=== PATIENT | female | born 1995 | race African-American/Black ===

== ENCOUNTER 2023-03-03 19:14 | Emergency (ER) | payer MEDICAID, SELFPAY ==
--- NOTE | ~2023-03-03 | XR_ITS ---
EXAMINATION: XR chest 2V DATE: 03/03/2023 22:31 INDICATION: Cough and shortness of breath TECHNIQUE: PA and lateral views of the chest are obtained. COMPARISON: None available FINDINGS: The lungs are free of acute opacities. No pleural effusion or pneumothorax. The cardiomedia stinal silhouette is normal. The visualized bones and soft tissues are unremarkable. IMPRESSION: 1. No acute cardiopulmonary abnormality. Reviewed, dictated and finalized at location F.
[2023-03-03 19:22] VITALS: BP 124/69; PULSE 80; RESP 16; TEMP 36.6; O2SAT 98
[2023-03-03 22:00] VITALS: BP 123/87; PULSE 84; RESP 14; O2SAT 99
[2023-03-03 23:09] LABS: Influenza A QL RT-PCR Negative (Negative); Influenza B QL RT-PCR Negative (Negative); RSV RNA, RT-PCR Negative (Negative); SARS-CoV-2 RNA PCR Negative (Negative)
[2023-03-03 23:24] VITALS: BP 130/87; PULSE 83; RESP 14; O2SAT 99
--- NOTE | 2023-03-03 23:31 | ED_ITS ---
HPI - Asthma General Chief Complaint: Asthma Stated Complaint: asthma- cough Time Seen by Provider: 03/03/23 22:14 History of Present Illness HPI Narrative: Patient presents the emergency department with concern for asthma exacerbation. She moved to the area and is out of all of her medications currently. She has been using them regularly over the past 3 weeks. She has had a persistent cough but denies fevers. Denies sick contacts. Related Data Allergies Allergy/AdvReac Type Severity Reaction Status Date / Time No Known Allergies Allergy Verified 03/03/23 22:45 Review of Systems Review of Systems: Review of systems negative except what is documented in the HPI Exam 2 Narrative: GENERAL: Well-appearing, well-nourished, and in no acute distress. HEAD: Normocephalic, atraumatic. EYES: PERRLA and EOMI. ENT: Nares clear, no rhinorrhea or epistaxis. Mucous membranes moist. NECK: Supple. CHEST: Clear to auscultation. No respiratory distress. HEART: Regular rate and rhythm. ABDOMEN: Soft, nontender, nondistended. EXTREMITIES: Normal range of motion. No edema. SKIN: Warm, dry, no rash. NEURO: No focal deficits. Alert and oriented x3. PSYCH: Normal mood and affect. Course Vital Signs Vital signs: Vital Signs Temperature 36.6 C 03/03/23 19:22 Pulse Rate 80 03/03/23 19:22 Respiratory Rate 16 03/03/23 19:22 Blood Pressure 124/69 03/03/23 19:22 Pulse Oximetry 98 03/03/23 19:22 Oxygen Delivery Room Air 03/03/23 19:22 Temperature 36.6 C 03/03/23 19:22 Pulse Rate 83 03/03/23 23:24 Respiratory Rate 14 03/03/23 23:24 Blood Pressure 130/87 03/03/23 23:24 Pulse Oximetry 99 03/03/23 23:24 Oxygen Delivery Room Air 03/03/23 22:00 MDM - Asthma MDM Narrative Medical decision making narrative: Patient's lungs are clear to auscultation. Exam grossly benign. Vital signs stable without hypoxemia. COVID and influenza negative. Lab Data Labs: Lab Results 03/03/23 Range/Units 22:27 Influenza A (RT-PCR) Negative (Negative) Influenza B (RT-PCR) Negative (Negative) RSV (RT-PCR) Negative (Negative) SARS-CoV-2 RNA (RT-PCR) Negative (Negative) Discharge Plan Discharge Clinical Impression: Asthma with acute exacerbation Patient Disposition: Home, Self-Care Condition: Stable Instructions: Asthma (ED) Prescriptions: New benzonatate 100 mg capsule 100 mg PO TID PRN (Reason: cough) Qty: 20 0RF prednisone 50 mg tablet 50 mg PO DAILY Qty: 4 0RF albuterol sulfate 90 mcg/actuation HFA aerosol inhaler 1 inh inhalation QID PRN (Reason: shortness of breath or wheezing) Qty: 6.7 0RF Follow-up/Referrals: Tomy Valle MD [Physician] - UNKNOWN,DOCTOR [Primary Care Provider] - Time of Disposition: 23:52
[2023-03-04] VITALS: BP 130/74; PULSE 90; RESP 19; O2SAT 99
[2023-03-04] MEDS: BENZONATATE 100 MG CAPSULE PO (00:02)
[2023-03-04] MEDS: predniSONE 20 MG TABLET 60 MG PO (00:02)
== END 2023-03-04 | disposition home or self-care (01) ==
PROVIDERS: Emergency Provider Emergency Medicine
DX: J45.901 Unspecified asthma with (acute) exacerbation (principal)
CPT/HCPCS: 71046; 87637; 99283; A9270; J7512

== ENCOUNTER 2023-03-05 17:22 | Emergency (ER) | payer MEDICAID, SELFPAY ==
[2023-03-05] VITALS (10 sets, daily range): BP systolic 114–150; BP diastolic 75–86; PULSE 80–122; RESP 12–28; TEMP 36.9; O2SAT 97–100
--- NOTE | 2023-03-05 19:25 | PC.NURSE ---
Notified by scale technician that patient walked out of the exam room and stated I haven't been seen by a doctor. I'm not waiting any more . therapeutic program worker notified.
== END 2023-03-05 21:11 | disposition left against medical advice (07) ==
LOC: ANHED 19:31
DX: R06.02 Shortness of breath (principal)
CPT/HCPCS: 99199

== ENCOUNTER 2023-07-03 08:24 | Emergency (ER) | payer OTHER, SELFPAY ==
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
[2023-07-03 08:50] VITALS: BP 113/66; PULSE 98; RESP 16; TEMP 37.1; O2SAT 99
== END 2023-07-03 09:05 | disposition home or self-care (01) ==
PROVIDERS: Emergency Provider Registered Nurse
DX: B37.0 Candidal stomatitis (principal); N76.0 Acute vaginitis
CPT/HCPCS: 99213; G0463

== ENCOUNTER 2023-08-25 17:09 | Emergency (ER) | payer BC, OTHER, SELFPAY ==
--- NOTE | 2023-08-25 17:15 | ED.GENADULT ---
HPI - General Adult General Chief complaint: Asthma Stated complaint: asthma issue Time Seen by Provider: 08/25/23 17:15 Source: patient, RN notes reviewed and old records reviewed Mode of arrival: ambulatory Limitations: no limitations History of Present Illness HPI narrative: 28-year-old female presents to the [facility] with an asthma issue. Has a history of asthma. Patient reports for the last 2-3 days has had increased shortness of breath, wheezing. Onset (ago): day(s) (2-3) Related Data Home Medications Medication Instructions Recorded Confirmed albuterol sulfate 2.5 mg/3 mL 2.5 mg inhalation Q4H PRN sob 08/25/23 08/25/23 (0.083 %) solution for nebulization albuterol sulfate 90 mcg/actuation 2 puff inhalation Q4-6H PRN sob 08/25/23 08/25/23 aerosol inhaler Allergies Allergy/AdvReac Type Severity Reaction Status Date / Time No Known Allergies Allergy Verified 08/25/23 17:15 Review of Systems Review of Systems: All systems reviewed & are unremarkable except as noted in HPI and below Constitutional: Constitutional: Reports no additional constitutional complaints Eyes: Eyes: Reports no additional eye complaints ENT: Reports system reviewed and no additional complaints, except as documented Cardiovascular: Cardiovascular: Reports no additional cardiovascular complaints, Denies chest pain and Denies dyspnea Respiratory: Respiratory: Reports as per HPI, Denies chest congestion, Denies cough and Reports dyspnea Gastrointestinal: Gastrointestinal: Reports no additional gastrointestinal complaints, Denies abdominal pain, Denies nausea and Denies vomiting Musculoskeletal: Musculoskeletal: Reports no additional musculoskeletal complaints Integumentary/Breasts: Skin/Breast: Reports system reviewed and no additional complaints, except as docu Neurologic: Reports system reviewed and no additional complaints, except as documented Psychiatric: Psychiatric: Reports no additional psychiatric complaints Allergic/Immunologic: Allergic/Immunologic: Reports no additional allergic/immunologic complaints PMFSH Comments At the time of my signature, I reviewed and agree with the nursing past medical, surgical, social, and family history. There is no relevant family history pertinent to the patient complaint. Exam Const: General: cooperative, healthy appearing, comfortable, no acute distress, well developed, alert and well nourished Nutritional Appearance: well nourished Orientation/consciousness: patient oriented x3 Limitations: no limitations HENMT: Head: normal to inspection Ears: hearing grossly normal bilaterally and external ears normal Face/Nose/Sinus: Normal external nose present, Normal nares present, Normal nasal mucous membranes and turbinates present, normal facial exam and face symmetric Face and sinus: normal facial exam and face symmetric Mouth: Yes Normal oral and palatal mucosa present, Yes lip normal and Yes moist mucous membranes Throat: posterior oropharynx normal, uvula midline and no uvular edema Eyes: General: appearance normal, both eyes and all related structures Alignment and Position: alignment normal Periorbital: periorbital findings normal Pupils: Equal, round and reactive pupils present EOM: EOMs intact bilaterally Neck: Neck: normal visual inspection, full ROM, no lymphadenopathy and no meningeal signs Chest: Chest palpation & inspection: normal inspection of the chest Resp: Effort & Inspection: normal respiratory effort and able to speak in complete sentences Auscultation: no crackles, no rales, no rhonchi, wheezes expiratory wheezes, left lower and right lower and diminished lung sounds bilateral throughout Cardio: Rate: regular rate Rhythm: regular rhythm Back/Spine/Pelvis: Cervical Spine: cervical ROM normal Skin: General skin exam: normal color and no rashes or lesions noted Lesions: no lesions Rashes: no rashes Wounds: no wounds Neuro: General: patient oriented x3, ga
[2023-08-25 17:20] VITALS: BP 113/65; PULSE 86; RESP 18; TEMP 37.3; O2SAT 99
[2023-08-25] MEDS: ALBUTEROL SULFATE NEB 2.5 MG/3 ML INH INHALATION (17:36)
[2023-08-25] MEDS: IPRATROPIUM BR 0.02% INH SOLN 0.5 MG/2.5 ML VIAL INHALATION (17:36)
== END 2023-08-25 18:23 | disposition home or self-care (01) ==
PROVIDERS: Emergency Provider Nurse Practitioner
DX: J45.901 Unspecified asthma with (acute) exacerbation (principal)
CPT/HCPCS: 94640; 99213; G0463

== ENCOUNTER 2024-01-27 13:48 | Emergency (ER) | payer OTHER, MEDICAID, SELFPAY ==
[2024-01-27 13:54] VITALS: BP 122/71; PULSE 104; RESP 20; TEMP 36.8; O2SAT 99
--- NOTE | 2024-01-27 14:06 | ED.URI ---
HPI - URI/Sore Throat General Chief Complaint: Unspecified Stated Complaint: Vaginal/Asthma/Left Hand Finger Pain Time Seen by Provider: 01/27/24 14:07 Source: patient, RN notes reviewed and old records reviewed Mode of arrival: ambulatory Limitations: no limitations History of Present Illness HPI Narrative: Patient presents with complaints of pain and swelling around the nail bed of the left thumb, this has been present for about a week. She noted this after pulling out a hangnail. She also complains of swelling to the right labia majora. this has been present for a couple of days Further complains of increase in asthma symptoms for the past couple of months. Reports that she recently moved back to the area, asthma symptoms have been present since, she is not in any distress today. She reports that she no longer has a PCP, a list of primary is will be provided to her at discharge Related Data Home Medications Medication Instructions Recorded Confirmed albuterol sulfate 2.5 mg/3 mL 2.5 mg inhalation Q4H PRN sob 08/25/23 01/27/24 (0.083 %) solution for nebulization albuterol sulfate 90 mcg/actuation 2 puff inhalation Q4-6H PRN sob 08/25/23 01/27/24 aerosol inhaler butalbital 50 mg-acetaminophen 325 tablet 01/27/24 mg tablet Allergies Allergy/AdvReac Type Severity Reaction Status Date / Time No Known Allergies Allergy Verified 01/27/24 14:05 Review of Systems Review of Systems: All systems reviewed & are unremarkable except as noted in HPI and below Constitutional: Constitutional: Reports as per HPI and Reports no additional constitutional complaints ENT: Reports system reviewed and no additional complaints, except as documented Cardiovascular: Cardiovascular: Reports no additional cardiovascular complaints Respiratory: Respiratory: Reports as per HPI, Reports no additional respiratory complaints, Reports cough and Reports wheezing Gastrointestinal: Gastrointestinal: Reports no additional gastrointestinal complaints Genitourinary: Genitourinary: Reports no additional female genitourinary complaints and Reports as per HPI Integumentary/Breasts: Skin/Breast: Reports system reviewed and no additional complaints, except as docu and Reports as per HPI PMFSH Comments At the time of my signature, I reviewed and agree with the nursing past medical, surgical, social, and family history. There is no relevant family history pertinent to the patient complaint. Exam Const: General: cooperative, no acute distress, alert and awake Orientation/consciousness: oriented to person, oriented to place and oriented to time HENMT: Head: normal to inspection Mouth: Yes moist mucous membranes Resp: Effort & Inspection: normal respiratory effort and able to speak in complete sentences Auscultation: clear to auscultation bilaterally, no crackles, no rales, no rhonchi and no wheezes Cardio: Palpation: normal PMI Rate: regular rate Rhythm: regular rhythm Heart sounds: S1 normal heart sound present and S2 normal heart sound present : External Female Exam: external swelling ( mild swelling, right labia majora) and lesion ( excoriation noted right side of labia near vaginal opening) Neuro: General: oriented to person, oriented to place and oriented to time Cranial nerves: Yes CN's II-XII intact bilaterally Extrem: Left upper extremity: full ROM, normal capillary refill and hand normal capillary refill, neuromotor exam normal, tenderness of the thumb at the nailbed, normal ROM of fingers and swelling of the thumb at the nailbed Psych: Appearance: grossly normal Thought process: Normal thought process present Insight: Good insight present (Psych) Judgement: Good judgement present (Psych) Course Course Emergency Course: no asthma symptoms on arrival, but will refill albuterol inhaler so that she has this for emergency use. Left thumb with paronychia, this was easily drained with needle. Will start antibiotic therapy for
[2024-02-04 02:58] LABS: Source LABIA MAJORA
== END 2024-01-27 14:55 | disposition home or self-care (01) ==
PROVIDERS: Emergency Provider Nurse Practitioner Family
DX: L03.012 Cellulitis of left finger (principal); N89.9 Noninflammatory disorder of vagina, unspecified; J45.909 Unspecified asthma, uncomplicated
CPT/HCPCS: 10160; 87255; 99213; G0463

== ENCOUNTER 2024-03-21 12:11 | Emergency (ER) | payer OTHER, MEDICAID, SELFPAY ==
[2024-03-21 12:17] VITALS: BP 115/68; PULSE 84; RESP 18; TEMP 36.6; O2SAT 99
--- NOTE | 2024-03-21 12:37 | ED.ASTHMA ---
HPI - Asthma General Chief Complaint: Asthma Stated Complaint: asthma flare up Time Seen by Provider: 03/21/24 12:14 Source: patient Mode of arrival: ambulatory Limitations: no limitations History of Present Illness HPI Narrative: Patient is a 20-year-old female who presents with 1 week of increased shortness of breath and wheezing. Patient has asthma and has been out of all of her inhalers and nebulizer drops. Patient still has an active smoker. Denies any fever, chills, nausea, vomiting, diarrhea. Does report cough. Related Data Home Medications Medication Instructions Recorded Confirmed albuterol sulfate 2.5 mg/3 mL 2.5 mg inhalation Q4H PRN sob 08/25/23 01/27/24 (0.083 %) solution for nebulization albuterol sulfate 90 mcg/actuation 2 puff inhalation Q4-6H PRN sob 08/25/23 01/27/24 aerosol inhaler Allergies Allergy/AdvReac Type Severity Reaction Status Date / Time No Known Allergies Allergy Verified 01/27/24 14:05 Review of Systems Review of Systems: All systems reviewed & are unremarkable except as noted in HPI and below Constitutional: Constitutional: Denies body ache(s), Denies chills, Denies fatigue, Denies fever(s), Denies headache(s), Denies malaise and Denies weakness Eyes: Eyes: Denies blurry vision, Denies itchy eyes and Denies loss of vision ENT: Denies otalgia, Denies headache(s), Denies nasal congestion, Denies sinus pain and Denies sore throat Cardiovascular: Cardiovascular: Denies chest pain, Denies irregular heart rhythm and Denies dyspnea Respiratory: Respiratory: Reports cough, Denies dyspnea and Reports wheezing Gastrointestinal: Gastrointestinal: Denies abdominal pain, Denies diarrhea, Denies nausea and Denies vomiting Musculoskeletal: Musculoskeletal: Denies back pain, Denies myalgias and Denies arthralgias Integumentary/Breasts: Skin/Breast: Denies pruritus and Denies rash Neurologic: Denies headache(s), Denies loss of vision and Denies weakness Psychiatric: Psychiatric: Reports no additional psychiatric complaints Endocrine: Endocrine: Denies fatigue Allergic/Immunologic: Allergic/Immunologic: Denies itchy eyes PMFSH Comments At time of signature, agree with nursing past medical, surgical, social and family history. There is no relevant family history pertinent to the presenting complaint. Exam Const: General: cooperative, healthy appearing, comfortable, no acute distress and well nourished Nutritional Appearance: well nourished Orientation/consciousness: patient oriented x3 Limitations: no limitations HENMT: Head: normal to inspection, normocephalic and atraumatic Ears: hearing grossly normal bilaterally, external ears normal, TM's normal bilaterally, EAC's normal and no periauricular adenopathy Face/Nose/Sinus: Normal external nose present, Normal nasal mucous membranes and turbinates present, normal facial exam, sinuses nontender and face symmetric Face and sinus: normal facial exam, sinuses nontender and face symmetric Mouth: Yes Normal oral and palatal mucosa present, Yes lip normal, Yes tongue normal, Yes Normal salivary glands and ducts present, Yes oropharynx normal and Yes moist mucous membranes Teeth and gingiva: dentition normal Throat: posterior oropharynx normal, tonsils normal and uvula midline Eyes: General: appearance normal, both eyes and all related structures Alignment and Position: alignment normal and position normal Periorbital: periorbital findings normal Eyelids: eyelids normal Pupils: Equal, round and reactive pupils present Neck: Neck: normal visual inspection, full ROM, no lymphadenopathy and supple Chest: Chest palpation & inspection: normal inspection of the chest and normal palpation of entire chest wall Resp: Effort & Inspection: normal respiratory effort and able to speak in complete sentences Auscultation: no crackles, no rales, no rhonchi and wheezes inspiratory wheezes and throughout Cardio: Rate: regular rate Rhythm: regular rhythm Heart sounds: S1 normal heart sound present and S2 normal heart sound present GI: Inspection: normal to inspection Skin: General skin exam: normal color and no rashes or lesions noted Neuro: General: patient oriented x3 and moves all extremities Cranial nerves: Yes Equal, round and reactive pupils present Speech: normal speech Gait exam (Neuro): Normal gait present Extrem: General: normal to inspection, full ROM and no edema Psych: Appearance: grossly normal and well kempt Mental Status: mental status grossly normal Speech and movement: Normal speech and movement present Affect: normal affect Attitude: cooperative Thought process: Normal thought process present Course Course Emergency Course: Patient is aware of diagnosis, understands and agrees to treatment plan. Anticipatory guidance given. Patient agrees to follow-up as directed and is aware of reasons to seek care at the emergency department. Portions of this record may have been created with voice recognition software Level of Care: Express Care Visit Vital Signs Vital signs: Vital Signs Temperature 36.6 C 03/21/24 12:17 Pulse Rate 84 03/21/24 12:17 Respiratory Rate 18 03/21/24 12:17 Blood Pressure 115/68 03/21/24 12:17 Pulse Oximetry 99 03/21/24 12:17 Oxygen Delivery Room Air 03/21/24 12:17 Temperature 36.6 C 03/21/24 12:17 Pulse Rate 84 03/21/24 12:17 Respiratory Rate 18 03/21/24 12:17 Blood Pressure 115/68 03/21/24 12:17 Pulse Oximetry 99 03/21/24 12:17 Oxygen Delivery Room Air 03/21/24 12:17 Reviewed MDM - Asthma MDM Narrative Medical decision making narrative: Exam findings show no acute concerns or changes; patient is non-toxic appearing and is in no distress.? Patient is appropriate for outpatient treatment and follow-up. Discharge instructions reviewed with patient, as well as provided in writing per nursing staff. The instructions also include specific and strict return/GO TO THE ER as well as f/u information. All questions have been answered, and the patient deny any further questions with discharge and discharge plan. Differential Diagnosis Differential diagnosis: Likely Acute exacerbation, Status asthmaticus, Acute asthmatic bronchitis, Pneumonia, COPD exacerbation and ARDS Medical Records Attestation: I reviewed the patient's medical records. Discharge Plan Discharge Clinical Impression: Asthma with acute exacerbation Qualifiers: Asthma severity: unspecified severity Asthma persistence: unspecified Qualified Code(s): J45.901 - Unspecified asthma with (acute) exacerbation Patient Disposition: Home, Self-Care Condition: Stable Instructions: Asthma (ED) Additional Instructions: Take antibiotic as prescribed. Take steroids in the morning with food. Use Tessalon Perles as needed for cough. Use inhaler with spacer or the nebulizer as needed. Other symptomatic treatments include: -Alternate Tylenol and Motrin per package directions for fever or pain. -Antihistamine medication such as Benadryl at night and Zyrtec/Claritin/Shannan during the day can help improve symptoms. -Use Flonase twice a day for 5 days then daily to help reduce the inflammation and dry up your sinuses. -You can also use Sudafed or Mucinex. Be sure to drink plenty of water with these medications at least 8 ounces with every dose and it is important to drink 8 to 10 glasses of water per day. Water is a natural decongestant -Eat and drink things that are easy to swallow, like tea or soup, or popsicles. -Oral rinses such as: Salt water gargles and/or may use topical anesthetic (eg. Chloraseptic spray) or lozenges to relieve dryness or throat pain). -Frequent hand washing or hand movie shot camera operator is one of the best ways to prevent spread of infection. -Using a vaporizer or humidifier at night will also help thin secretions and help with coughing up phlegm. -Follow up with primary care provider in 3-5 days if condition is not improving - For new or worsening symptoms go directly to the nearest ER Prescriptions: New albuterol sulfate 2.5 mg /3 mL (0.083 %) solution for nebulization 2.5 mg inhalation Q6H Qty: 90 0RF (DME) Aerochamber MV Spacer See Rx Instructions .Route Qty: 1 0RF Rx Instructions: As directed albuterol sulfate 90 mcg/actuation HFA aerosol inhaler 2 puff inhalation QID PRN (Reason: shortness of breath or wheezing) Qty: 6.7 0RF azithromycin 250 mg tablet See Rx Instructions .ROUTE .COMPLEX Qty: 6 0RF Rx Instructions: For 250 mg dose pack: take 500 mg today (day 1), then 250 mg for 4 days (days 2-5) prednisone 20 mg tablet 40 mg PO DAILY 5 Days Qty: 10 0RF triamcinolone acetonide 0.1 % cream 1 applic topical TID 5 Days Qty: 80 0RF benzonatate 100 mg capsule 100 mg PO BID PRN (Reason: cough) Qty: 14 0RF fluticasone propion-salmeterol [Wixela Inhub] 250-50 mcg/dose blister with device 1 inh inhalation Q12H Qty: 60 0RF No Action albuterol sulfate [Proventil HFA] 90 mcg/actuation HFA aerosol inhaler 2 puff inhalation QID PRN (Reason: shortness of breath or wheezing) Qty: 8.5 0RF albuterol sulfate 2.5 mg /3 mL (0.083 %) Solution For Nebulization 2.5 mg INHALATION Q4H PRN (Reason: sob) albuterol sulfate 90 mcg/actuation HFA aerosol inhaler 2 puff INHALATION Q4-6H PRN (Reason: sob) Follow-up/Referrals: Juan Novoa MD [Physician] - 3 Days (Establish care) PHYSICIAN,ROTARY DRILLER [Primary Care Provider] - Stand Alone Forms: Work/School Release IP Time of Disposition: 12:54
== END 2024-03-21 12:59 | disposition home or self-care (01) ==
PROVIDERS: Emergency Provider Nurse Practitioner Family
DX: J45.901 Unspecified asthma with (acute) exacerbation (principal); F17.200 Nicotine dependence, unspecified, uncomplicated
CPT/HCPCS: 99213; G0463

== ENCOUNTER 2025-01-25 13:57 | Emergency (ER) | payer BC, MEDICAID, SELFPAY ==
[2025-01-25 14:05] VITALS: BP 111/71; PULSE 91; RESP 18; TEMP 36.3; O2SAT 98
--- NOTE | 2025-01-25 14:53 | ED_ITS ---
HPI - General Adult General Chief complaint: Asthma Stated complaint: Asthma / Abdominal Pain Time Seen by Provider: 01/25/25 14:56 Source: patient, RN notes reviewed and old records reviewed Mode of arrival: ambulatory Limitations: no limitations History of Present Illness HPI narrative: 29 year old female who presents to [facility] care with complaints of increased asthma symptoms for the past 2.5 weeks has had to use her rescue inhaler more frequently lately and feels some dyspnea with exertion and has been noting some wheezing. Patient reports no upper respiratory symptoms, denies sinus congestion and drainage,reports no fevers. Patient reports that she was diagnosed in 2021 with ovarian cysts and has not had any pain for over a year till she had her menses in December and has been experiencing pain over ovaries in lower abdomen since. Patient reports that she started her menses on the 24 of January and pain has increased since she started her menses. Patient reports that she has no diarrhea, no nausea or any episodes of vomiting, no pain with urination. Patient reports that she was diagnosed with ovarian cysts when lived in [place], does not have PCP in this area but has [facility] with upcoming appointment this month MD complaint: asthma symptoms, pain in ovaries Onset (ago): month(s) (2.5 weeks increased asthma symptoms, 1 month ovary pain) Location: abdomen (lower abdomen over ovaries) Severity scale (1-10): 6 Quality: aching Treatments prior to arrival: other (Albuterol) Related Data Home Medications ?Medication ?Instructions ?Recorded ?Confirmed ?Last Taken ?Type albuterol sulfate 90 mcg/actuation 2 puff inhalation Q 4-6H PRN sob 08/25/23 01/27/24 Unknown History aerosol inhaler Allergies Allergy/AdvReac Type Severity Reaction Status Date / Time No Known Allergies Allergy Verified 01/25/25 14:42 Review of Systems Review of Systems: CONSTITUTIONAL: Denies fever, chills, or sweats. EYES: Denies visual changes, redness, or discharge. ENT: Denies rhinorrhea, congestion, sore throat, or otalgia. CARDIOVASCULAR: Denies chest pain, palpitations, or edema. RESPIRATORY: Reports cough and dyspnea with wheezing GASTROINTESTINAL: reports lower abdominal pain over ovary areas, no nausea, vomiting, or diarrhea. GENITOURINARY: Denies dysuria or hematuria. SKIN: Denies rash or itching. MUSCULOSKELETAL: Denies back pain, joint pain, or myalgia. NEUROLOGIC: Denies headache, numbness, or weakness. PSYCHIATRIC: Denies anxiety or depression. All systems reviewed & are unremarkable except as noted in HPI and below PMFSH Past Medical History Medical History (Updated 01/26/25 @ 15:29 by Sheri Hannon NP) Asthma Surgical History Surgical History (Updated 01/26/25 @ 15:16 by Sheri Hannon NP) H/O section x2 Social History Social History (Updated 01/26/25 @ 15:16 by Sheri Hannon NP) Smoking status: Never smoker Alcohol intake: current Alcohol use details: social Substance use type: does not use Living arrangements: with family Gender identity (if verbalized by the patient): Female Comments At time of signature, agree with nursing past medical, surgical, social and family history. There is no relevant family history pertinent to the presenting complaint Exam Narrative: GENERAL: Well-appearing, well-nourished, and in no acute distress. HEAD: Normocephalic, atraumatic. EYES: PERRLA and EOMI. ENT: Nares clear, no rhinorrhea or epistaxis. Mucous membranes moist.TM's normal throat pink with no drainage or exudate NECK: Supple. no lymphadenopathy CHEST: Scattered wheezing on auscultation. No acute respiratory distress no retractions noted, no acute cough.SAO2 98% on room air, able to speak in full sentences HEART: Regular rate and rhythm. No murmur heard. Normal peripheral pulses. ABDOMEN: Soft, tender over ovary areas no McBurney point tenderness, no groin pain or any pain over lower left quadrant on palpation,, nondistended, normal active bowel sounds, reports no fevers, no nausea, no vomiting, denies any UTI symptoms or constipation or diarrhea.. EXTREMITIES: Normal range of motion. No edema. SKIN: Warm, dry, no rash. NEURO: No focal deficits. Alert and oriented x3. Course Course Emergency Course: Patient is aware of diagnosis, understands and agrees to treatment plan.? Anticipatory guidance given.? Patient agrees to follow-up as directed and is aware of reasons to seek care at the emergency department. Portions of this record may have been created with voice recognition software Level of Care: Express Care Visit Vital Signs Vital signs: Vital Signs Temperature 36.3 C L 01/25/25 14:05 Pulse Rate 91 01/25/25 14:05 Respiratory Rate 18 01/25/25 14:05 Blood Pressure 111/71 01/25/25 14:05 Pulse Oximetry 98 01/25/25 14:05 Oxygen Delivery Room Air 01/25/25 14:05 Temperature 36.3 C L 01/25/25 14:05 Pulse Rate 91 01/25/25 14:05 Respiratory Rate 18 01/25/25 14:05 Blood Pressure 111/71 01/25/25 14:05 Pulse Oximetry 98 01/25/25 14:05 Oxygen Delivery Room Air 01/25/25 14:05 Reviewed Medical Decision Making MDM Narrative Medical decision making narrative: Exam findings and imaging show no acute concerns or changes; patient is non- toxic appearing and is in no distress.? Patient is appropriate for outpatient treatment and follow-up Differential Diagnosis Differential Diagnosis: lower abdominal pain over ovaries, asthma exacerbation, wheezing with dyspnea with exertion, on menses Medical Records Medical records reviewed: Yes I reviewed the external patient's medical records. Vital Signs Vital Signs: Vital Signs Temperature 36.3 C L 01/25/25 14:05 Pulse Rate 91 01/25/25 14:05 Respiratory Rate 18 01/25/25 14:05 Blood Pressure 111/71 01/25/25 14:05 Pulse Oximetry 98 01/25/25 14:05 Oxygen Delivery Room Air 01/25/25 14:05 Temperature 36.3 C L 01/25/25 14:05 Pulse Rate 91 01/25/25 14:05 Respiratory Rate 18 01/25/25 14:05 Blood Pressure 111/71 01/25/25 14:05 Pulse Oximetry 98 01/25/25 14:05 Oxygen Delivery Room Air 01/25/25 14:05 reviewed Critical Care Time Critical Care Time Critical Care Time: No Discharge Plan Discharge Clinical Impression: Abdominal pain, bilateral lower quadrant Asthma with acute exacerbation Qualifiers: Asthma severity: moderate Asthma persistence: persistent Qualified Code(s): J45.41 - Moderate persistent asthma with (acute) exacerbation Patient Disposition: Home Condition: Stable Instructions: Asthma (ED), Abdominal Pain (ED) Additional Instructions: Increase fluids especially juices and water [id number] cough and cold medicine of your choice for your symptoms Continue your inhaler/nebulizer as directed Steroids as directed--take with food heat to the face 20-30 minutes 4-6 times a day for pain Salt water gargles, throat lozenges or throat sprays as desired If increased pain in abdomen go directly to the emergency room follow-up with OBGYN at scheduled visit this month Recommend naproxen for discomfort If your symptoms persist, change or worsen significantly before you can contact your personal physician then please, without delay, go to the emergency department for further evaluation. Follow-up with PCP in 7-10 days or sooner if needed Patient Language: [place] Prescriptions: New budesonide-formoterol 80-4.5 mcg/actuation HFA aerosol inhaler 1 puff inhalation Q12H Qty: 10.2 0RF prednisone 20 mg tablet 20 mg PO BID Qty: 10 0RF albuterol sulfate [Ventolin HFA] 90 mcg/actuation HFA aerosol inhaler 2 puff inhalation QID PRN (Reason: shortness of breath or wheezing) Qty: 8.5 0RF Rx Instructions: what ever is covered by insurance No Action albuterol sulfate 90 mcg/actuation HFA aerosol inhaler 2 puff INHALATION Q4-6H PRN (Reason: sob) albuterol sulfate 2.5 mg /3 mL (0.083 %) solution for nebulization 2.5 mg inhalation Q6H Qty: 90 0RF (DME) Aerochamber MV Spacer See Rx Instructions .Route Qty: 1 0RF Rx Instructions: As directed Follow-up/Referrals: PHYSICIAN,MUSIC ASSISTANT [Primary Care Provider, Internal Medicine] Stand Alone Forms: Work/School Release IP Time of Disposition: 15:18 Quality [place] Coma Scale Eyes: Open Verbal: Oriented and Alert Motor: Follows Commands [place] Coma Total Score: 15
== END 2025-01-25 15:24 | disposition home or self-care (01) ==
PROVIDERS: Emergency Provider Registered Nurse
DX: R10.30 Lower abdominal pain, unspecified (principal); J45.41 Moderate persistent asthma with (acute) exacerbation
CPT/HCPCS: 99213; G0463